=== PATIENT | female | born 1985 | race Caucasian/White ===

== ENCOUNTER 2019-10-01 07:42 | Emergency (ER) | payer SELFPAY ==
[~2019-10-01] VITALS: Ht 157.5 cm; Wt 63.6 kg
[2019-10-01 07:54] VITALS: Ht 157.5 cm; Wt 63.6 kg
[2019-10-01] MEDS ORDERED: PREDNISONE20 MG PO (08:45)
[2019-10-01 08:52] VITALS: BP 133/87
== END 2019-10-01 09:13 | disposition home or self-care (01) ==
LOC: D.ER 07:42
DX: M79.642 Pain in left hand (principal); M79.641 Pain in right hand; G89.29 Other chronic pain